=== PATIENT | male | born 1940 | race Caucasian/White ===

== ENCOUNTER 2017-09-15 08:57 | Day surgery (SDC) | payer MEDICARE, OTHER ==
[~2017-09-15 08:57] MED LIST: Lidocaine 1% with EPINEPHrine 1:100,000 50 ML MDV ONE
[2017-09-15] MEDS ORDERED: Lidocaine 0.5% 50 ML SDV ONE (09:38)
[2017-09-15] MEDS ORDERED: fentaNYL 100 MCG/2 ML SDV ONE (09:38)
[2017-09-15] MEDS ORDERED: Midazolam 1 MG/ML 2 ML SDV ONE (09:38)
[2017-09-15] MEDS ORDERED: Propofol 200 MG/20 ML SDV ONE (09:38)
[2017-09-15] MEDS ORDERED: Dextrose 5%-Lactated Ringers 1,000 ML IV SCH (09:45)
[2017-09-15 12:01] VITALS: BP 139/76
--- NOTE | 2017-09-16 13:32 | OR ---
DATE OF PROCEDURE: 09/15/2017 PREOPERATIVE DIAGNOSIS: Right carpal tunnel syndrome. POSTOPERATIVE DIAGNOSIS: Right carpal tunnel syndrome. PROCEDURE: Right carpal tunnel release. SURGEON: Derek Malcolm MD. ANESTHESIA: Right [place] block. INDICATION: This 77-year-old white male complains of numbness and discomfort in his right middle and ring fingers. Nerve conduction studies last year showed moderate right carpal tunnel syndrome. There was also an element of cubital tunnel and ulnar tunnel syndrome. He desires to proceed with right carpal tunnel release. I counseled him for surgery including risks and alternatives, and he gave his informed consent to proceed. DESCRIPTION OF PROCEDURE: After adequate right upper extremity [place] block anesthesia was obtained, the patient's right upper extremity was prepped and draped in the usual sterile fashion. Time-out was held. A marking pen was used to vaibhav the planned incision, which is an incision that courses proximally along the thenar crease to a point in the distal wrist flexion crease in line with the right ring finger. At this point, the planned incision courses obliquely ulnarly. The incision was then made and it was carried deep and sharply to the transverse carpal ligament. The transverse carpal ligament was divided along its entire course, staying at the most ulnar aspect of the ligament. When this was completed, the incision was irrigated and suctioned dry. The skin was closed with a running stitch of 5-0 Prolene. A bulky hand dressing was applied. The tourniquet was cycled down and removed. He was brought from the operating room in a good condition having tolerated the procedure well. Derek Malcolm MD /[id number] MTDD
== END 2017-09-15 12:34 | disposition home or self-care (01) ==
LOC: JP.SDS 08:57
PROVIDERS: ATTEND Surgery
DX: G56.01 Carpal tunnel syndrome, right upper limb (principal)
CPT/HCPCS: 64721; J7042; J2250; J2704; J3010

== ENCOUNTER 2020-01-14 20:28 | Emergency (ER) | payer MEDICARE, OTHER ==
[2020-01-14 20:44] VITALS: BP 153/93; PULSE 75
[2020-01-14] MEDS ORDERED: Bacitracin Oint 1 GM U/D Packet TOP ONE (21:00)
[2020-01-14] MEDS ORDERED: Diphtheria,Pertussis(Acell),Tetanus Vaccine 0.5 ML SDV IM ONE (21:00)
--- NOTE | 2020-01-14 21:37 | EDM.PDOC ---
ED HPI GENERAL MEDICAL PROBLEM - General Chief Complaint: Skin Complaint Stated Complaint: LACERATION R FOREARM Time Seen by Provider: 01/14/20 21:00 Source of Information: Reports: Patient History Limitations: Reports: No Limitations - History of Present Illness INITIAL COMMENTS - FREE TEXT/NARRATIVE: 79-year-old male stumbled and caught his arm on the edge of a piece of farm machinery causing a laceration to his right forearm. He is in for repair. Onset: Sudden Duration: Hour(s): (An hour and a half ago) Location: Reports: Upper Extremity, Right Associated Symptoms: Reports: No Other Symptoms - Related Data Allergies Allergy/AdvReac Type Severity Reaction Status Date / Time No Known Allergies Allergy Verified 01/14/20 20:44 Home Meds: Home Meds Aspirin [Adult Low Dose Aspirin EC] 81 mg PO DAILY 10/01/15 [History] Past Medical History HEENT History: Reports: None, Hard of Hearing, Impaired Vision Gastrointestinal History: Reports: None Genitourinary History: Reports: Prostate Disorder Musculoskeletal History: Reports: Arthritis, Back Pain, Chronic, Fracture Neurological History: Reports: Other (See Below) Other Neuro History: tremors right arm - Infectious Disease History Infectious Disease History: Reports: Chicken Pox, Measles - Past Surgical History HEENT Surgical History: Reports: Cataract Surgery GI Surgical History: Reports: Colonoscopy, Hernia, Inguinal Male Surgical History: Reports: None Neurological Surgical History: Reports: None Other Neurological Surgeries/Procedures: hx of ruptures lumbar disc Musculoskeletal Surgical History: Reports: Carpal Tunnel Social & Family History - Family History Family Medical History: Noncontributory - Tobacco Use Smoking Status *Q: Never Smoker - Caffeine Use Caffeine Use: Reports: Coffee - Recreational Drug Use Recreational Drug Use: No ED ROS GENERAL - Review of Systems Review Of Systems: See Below Constitutional: Denies: Fever HEENT: Reports: No Symptoms Respiratory: Denies: Shortness of Breath Cardiovascular: Denies: Chest Pain GI/Abdominal: Denies: Abdominal Pain, Nausea, Vomiting Neurological: Denies: Paresthesia (No distal paresthesias or weakness) ED EXAM, SKIN/RASH Exam: See Below Exam Limited By: No Limitations General Appearance: Alert, No Apparent Distress Head: Atraumatic Respiratory/Chest: No Respiratory Distress Extremities: Other (Exam is otherwise limited to the right arm. Patient has an 8 cm angled laceration to the proximal aspect of the flexor surface right forearm. It is into the subcutaneous tissue and the skin is retracted.) Course - Vital Signs Last Recorded V/S: Last Vital Signs Temp 98.6 F 01/14/20 20:48 Pulse 75 01/14/20 20:48 Resp 16 01/14/20 20:48 BP 153/93 H 01/14/20 20:48 Pulse Ox 94 L 01/14/20 20:48 - Orders/Labs/Meds Orders: Active Orders 24 hr Category Date Time Status Vaccines to be Administered [RC] PER UNIT ROUTINE Care 01/14/20 21:00 Active Meds: Medications Discontinued Medications Generic Name Dose Route Start Last Admin Trade Name Freq PRN Reason Stop Dose Admin Bacitracin 1 dose 01/14/20 21:00 01/14/20 21:13 Bacitracin Oint 1 Gm TOP 01/14/20 21:01 1 dose ONETIME ONE Administration Diphtheria/Tetanus/Acell Pertussis 0.5 ml 01/14/20 21:00 01/14/20 21:14 Adacel IM 01/14/20 21:01 0.5 ml .ONCE ONE Administration Lidocaine HCl 5 ml 01/14/20 21:00 01/14/20 21:13 Xylocaine-Mpf 1% INJECT 01/14/20 21:01 5 ml ONETIME ONE Administration - Re-Assessments/Exams Free Text/Narrative Re-Assessment/Exam: 01/14/20 21:35 The area was anesthetized with 1% lidocaine and cleansed thoroughly with saline. Some undermining and revision of the edge of the skin needed to be done to match the skin edges. Nine 5-0 Ethilon sutures were then used to close the laceration. Topical bacitracin and a pressure dressing was applied, he was also given a Tdap booster. Sutures can be removed in 8 days. He can recheck sooner if concerns of infection or not healing satisfactorily. Departure - Departure Time of Disposition: 21:40 Disposition: Home, Self-Care 01 Clinical Impression: Laceration of right forearm Qualifiers: Encounter type: initial encounter Qualified Code(s): S51.811A - Laceration without foreign body of right forearm, initial encounter - Discharge Information Instructions: Laceration Care, Adult, Sutures, Lala, or Adhesive Wound Closure, [id number], VIS, Tetanus, Diphtheria, and Pertussis (Tdap) - CDC () Referrals: PCP,None [Primary Care Provider] - Forms: ED Department Discharge Care Plan Goals: Keep wound covered and clean while healing. Sutures can be removed in 8 days, recheck sooner if concerns of infection or not healing satisfactorily. Sepsis Event Note - Evaluation Sepsis Screening Result: No Definite Risk - Focused Exam Vital Signs: Vital Signs Temp Pulse Resp BP Pulse Ox 01/14/20 20:48 98.6 F 75 16 153/93 H 94 L 01/14/20 20:43 98.6 F 75 16 153/93 H 94 L Date Exam was Performed: 01/14/20 Time Exam was Performed: 22:02 - My Orders Last 24 Hours: My Active Orders 01/14/20 21:00 Vaccines to be Administered [RC] PER UNIT ROUTINE - Assessment/Plan Last 24 Hours: My Active Orders 01/14/20 21:00 Vaccines to be Administered [RC] PER UNIT ROUTINE
== END 2020-01-14 21:44 | disposition home or self-care (01) ==
LOC: JP.ED 20:28
DX: S51.811A Laceration without foreign body of right forearm, initial encounter (principal); Z79.82 Long term (current) use of aspirin; M19.90 Unspecified osteoarthritis, unspecified site; Z23 Encounter for immunization; W31.89XA Contact with other specified machinery, initial encounter
CPT/HCPCS: 12004; 90471; 90715; 99282; J2001

== ENCOUNTER 2021-10-04 07:22 | Day surgery (SDC) | payer MEDICARE, OTHER ==
[~2021-10-04 07:22] MED LIST changes: +Bupivacaine 0.5% 50 ML MDV ONE; -Lidocaine 1% with EPINEPHrine 1:100,000 50 ML MDV ONE
[2021-10-04] MEDS ORDERED: Lidocaine 0.5% 50 ML SDV ONE (07:23)
[2021-10-04] MEDS ORDERED: Midazolam 1 MG/ML 2 ML SDV ONE (07:23)
[2021-10-04] MEDS ORDERED: fentaNYL 100 MCG/2 ML SDV ONE (07:23)
[2021-10-04] MEDS ORDERED: Propofol 200 MG/20 ML SDV ONE (07:23)
[2021-10-04] MEDS ORDERED: Nozin Nasal Sanitizer NASBOTH ONE (08:00)
[2021-10-04] MEDS ORDERED: Lactated Ringers 1,000 ML IV SCH (08:00)
[2021-10-04] MEDS ORDERED: ceFAZolin 1 GM in Premix Bag 1 BAG IV ONE (08:30)
[2021-10-04] MEDS ORDERED: traMADol 50 MG Tab PO ONE (10:55)
[2021-10-04 11:35] VITALS: BP 159/84; PULSE 88
== END 2021-10-04 12:00 | disposition home or self-care (01) ==
LOC: JP.SDS 07:22
PROVIDERS: ATTEND Specialist
DX: G56.02 Carpal tunnel syndrome, left upper limb (principal); M65.9 Synovitis and tenosynovitis, unspecified
CPT/HCPCS: 36415; 64721; 80053; 85025; A9270; J0690; J2250; J2704; J3010; J3490; J7120